=== PATIENT | male | born 1980 | race Caucasian/White ===

== ENCOUNTER 2018-03-11 23:25 | Emergency (ER) | payer MEDICAID | END 2018-03-12 00:07 | disposition left against medical advice (07) | LOC: ER 23:25 | DX: Z53.21 Procedure and treatment not carried out due to patient leaving prior to being seen by health care provider (principal) ==

== ENCOUNTER 2018-03-29 23:01 | Emergency (ER) | payer MEDICAID ==
[~2018-03-29] VITALS: Ht 182.9 cm; Wt 153.0 kg
[2018-03-29 23:15] VITALS: BP 111/73
== END 2018-03-29 23:20 | disposition left against medical advice (07) ==
LOC: ER 23:01
DX: Z53.21 Procedure and treatment not carried out due to patient leaving prior to being seen by health care provider (principal)